=== PATIENT | female | born 1995 | race Caucasian/White ===

== ENCOUNTER 2022-02-05 18:43 | Inpatient (IN) | payer MEDICARE, OTHER ==
[~2022-02-05] VITALS: Ht 157.5 cm; Wt 99.3 kg
[2022-02-05 21:45] LABS: RED BLOOD COUNT 4.33 M/UL (4.00-5.10); WHITE BLOOD COUNT 15.6 K/UL (4.5-11.0)
[2022-02-06 07:59] LABS: HEMOGLOBIN 10.8 gm/dl (12.3-15.3); RED BLOOD COUNT 4.01 M/UL (4.00-5.10)
[2022-02-06 08:12] LABS: WHITE BLOOD COUNT 11.5 K/UL (4.5-11.0)
[2022-02-06] MEDS ORDERED: SERTRALINE HCL50 MG PO (10:56)
[2022-02-06] MEDS ORDERED: LEVETIRACETAM750 MG PO (10:57)
[2022-02-07 02:48] LABS: HEMOGLOBIN 10.7 gm/dl (12.3-15.3); RED BLOOD COUNT 3.95 M/UL (4.00-5.10); WHITE BLOOD COUNT 10.9 K/UL (4.5-11.0)
[2022-02-08 03:10] LABS: HEMOGLOBIN 10.6 gm/dl (12.3-15.3); RED BLOOD COUNT 3.91 M/UL (4.00-5.10); WHITE BLOOD COUNT 10.9 K/UL (4.5-11.0)
[2022-02-09 03:23] LABS: HEMOGLOBIN 11.1 gm/dl (12.3-15.3); RED BLOOD COUNT 4.1 M/UL (4.00-5.10)
[2022-02-10 03:46] LABS: HEMOGLOBIN 11.5 gm/dl (12.3-15.3); RED BLOOD COUNT 4.23 M/UL (4.00-5.10); WHITE BLOOD COUNT 10.6 K/UL (4.5-11.0)
--- NOTE | 2022-02-10 23:23 | NUR ---
At approximately 2300, patient's significant other notified nurse and professor of nursing, Maricruz, that patient had ingested approximately 30mL of mouthwash. Patient in no signs of distress. I called poision control (CASE # [id number]) and they stated that there was no cause for concern and that the patient might experience some stomach upset.
[2022-02-11 03:19] LABS: HEMOGLOBIN 12.2 gm/dl (12.3-15.3); RED BLOOD COUNT 4.5 M/UL (4.00-5.10); WHITE BLOOD COUNT 10.8 K/UL (4.5-11.0)
[2022-02-12] MEDS ORDERED: OMNICEF 300 MG300 MG PO (09:48)
[2022-02-12] MEDS ORDERED: ONDANSETRON ODT4 MG SL (09:48)
== END 2022-02-12 15:27 | disposition home or self-care (01) | DRG 683 ==
LOC: ER1 18:43 → M/S 02-06 08:53 → CDU 02-06 08:53 → M/S 02-06 13:24
PROVIDERS: Internal Medicine; Internal Medicine Nephrology; Physician Assistant; Physician Assistant Medical; Student in an Organized Health Care Education/Training Program; ADMIT Internal Medicine
DX: N17.0 Acute kidney failure with tubular necrosis (principal); E87.2 Acidosis; N39.0 Urinary tract infection, site not specified; Z68.41 Body mass index [BMI] 40.0-44.9, adult; F11.20 Opioid dependence, uncomplicated; F32.A Depression, unspecified; G40.909 Epilepsy, unspecified, not intractable, without status epilepticus; E66.01 Morbid (severe) obesity due to excess calories; F17.210 Nicotine dependence, cigarettes, uncomplicated; N20.0 Calculus of kidney; E86.0 Dehydration; Z88.8 Allergy status to other drugs, medicaments and biological substances; Z87.442 Personal history of urinary calculi; Z79.899 Other long term (current) drug therapy; Z87.820 Personal history of traumatic brain injury
CPT/HCPCS: 36415; 36600; 71045; 80048; 80053; 80307; 81001; 82803; 83605; 83690; 83735; 84703; 85025; 85027; 87040; 87086; 96374; 96375; 96376; 99285; G0378; J0696; J2270; J2405; J2550; P9047

== ENCOUNTER 2022-02-14 18:59 | Emergency (ER) | payer MEDICARE, OTHER ==
[~2022-02-14 18:59] MED LIST: LEVETIRACETAM750 MG PO; OMNICEF 300 MG300 MG PO; ONDANSETRON ODT4 MG SL; SERTRALINE HCL50 MG PO
[2022-02-14 21:45] LABS: HEMOGLOBIN 13.5 gm/dl (12.3-15.3); RED BLOOD COUNT 4.86 M/UL (4.00-5.10)
== END 2022-02-14 21:46 | disposition left against medical advice (07) ==
LOC: ER1 18:59
PROVIDERS: Physician Assistant
DX: R10.812 Left upper quadrant abdominal tenderness (principal); R10.12 Left upper quadrant pain; F17.200 Nicotine dependence, unspecified, uncomplicated
CPT/HCPCS: 81001; 85025; 87086; 96374; 96375; 99283; J1200; J2765

== ENCOUNTER 2022-02-26 15:42 | Emergency (ER) | payer MEDICARE, OTHER ==
[2022-02-26 16:34] LABS: RED BLOOD COUNT 4.38 M/UL (4.00-5.10); WHITE BLOOD COUNT 11.8 K/UL (4.5-11.0)
[2022-02-26 16:49] LABS: BUN/CREATININE RATIO 25 (0-10)
[2022-02-26] MEDS ORDERED: IBUPROFEN800 MG PO (19:48)
[2022-02-26] MEDS ORDERED: BACTRIM DS TAB1 EACH PO (19:48)
== END 2022-02-26 20:01 | disposition home or self-care (01) ==
LOC: ER1 15:42
PROVIDERS: Emergency Medicine
DX: N30.00 Acute cystitis without hematuria (principal); F17.200 Nicotine dependence, unspecified, uncomplicated; Z20.822 Contact with and (suspected) exposure to COVID-19
CPT/HCPCS: 80053; 81001; 84703; 85025; 99284; U0002